=== PATIENT | male | born 1950 | race Caucasian/White ===

== ENCOUNTER → 2017-01-23 | Day surgery (SDC) | payer BC ==
[~2017-01-23] VITALS: Ht 185.4 cm; Wt 149.7 kg
[~2017-01-23] MED LIST: ARMOUR THYROID60 MG PO; ASPIRIN LO-DOSE81 MG PO; CENTRUM SILVER1 TAB PO; CPAP INH; FISH OIL 1,2001 EAC3 PO; K-TAB 10MEQ10 MEQ PO; LASIX40 MG PO; LOPRESSOR25 MG PO; LOSARTAN-HCTZ1 EAC1 PO; METAMUCIL CAPSU1 CAP PO; MOBIC15 MG PO; NEXIUM40 MG PO; OSTEO BI-FLEX1 EAC1 PO; PRESERVISION A1 EACH PO; TYLENOL EXTRA500 MG PO; TYLENOL WITH C1 EACH PO
--- NOTE | ~2017-01-23 | OR ---
PATIENT'S NAME: TANYA TERRELL [facility] AGE: 66 Y [address] ROOM: [place] [address] [place] [facility] [place]: 01/23/2017 OR/Procedure Report DISCHARGE DATE: FAMILY PHYSICIAN: Fabio Burgos MD ATTENDING PHYSICIAN: Traci Santa SURGEON: Traci Santa MD FIRE ALARM INSTALLER: DATE OF PROCEDURE: 01/23/2017 PREOPERATIVE DIAGNOSIS: Right nephrolithiasis. POSTOPERATIVE DIAGNOSES: 1. Right nephrolithiasis. 2. Bulbourethral stricture. PROCEDURE PERFORMED: Cystoscopy, urethral dilatation, right stent placement, right ESWL and temporary Landers placement. ANESTHESIA: MAC. COMPLICATIONS: None. INDICATION FOR PROCEDURE: The patient is a 66-year-old male with a 2 cm right renal pelvic stone with mild discomfort and hydronephrosis. DETAILS OF PROCEDURE: After informed consent was obtained, the patient was taken to the operating room. A MAC anesthetic was applied and he was placed in the dorsal lithotomy position. The groin area was prepped and draped in normal sterile fashion. Cystoscope was introduced into the urethra and bladder without difficulty. When the cystoscope was initially introduced, the patient was noted to have a bulbourethral stricture which was then dilated with [place] sounds. Following dilatation, I was able to enter the bladder. The right ureteral orifice was cannulated with a guidewire up into the renal pelvis. Next, a 4.9 x multi-length ureteral stent was passed over the guidewire up into the renal pelvis. Radiographic imaging showed good positioning of the stent. Since the stone was radiolucent on KUB, I then placed a guidewire back up into the renal pelvis and slid a yellow Flexi-Tip catheter up towards the level of the stone. Contrast was injected and the outline of the stone was clearly identified in the renal pelvis. Next, a Landers catheter was placed and the yellow Flexi-Tip catheter was taped to the Landers catheter. PATIENT'S NAME: TANYA TERRELL [facility] AGE: 66 Y [address] ROOM: [place] [address] LOC[place]: [facility] [place]: 01/23/2017 OR/Procedure Report DISCHARGE DATE: FAMILY PHYSICIAN: Fabio Burgos MD ATTENDING PHYSICIAN: Traci Santa The patient was then transferred to the lithotripsy table. His stone was targeted with fluoroscopy. During the procedure, I injected contrast to outline of the patient's stone. He received shocks starting at 14 kilovolts and gradually increased to 24 kilovolts. He received a total of 3000 shocks and appeared that the stone fragmented fairly well with treatment. The patient tolerated his procedure well and was transferred to the recovery room in good condition. MD FABRICIO BELTRAN/rebecca /[id number] CC: Abel Kinney MD d: 01/23/17 2324 t: 01/30/17 0902, OPERATIVE SUMMARY
== END | disposition disaster alternative care site (69) ==
LOC: GPOC 01-22 14:00 → GSDC 13:02 → GPOC 14:00
PROC: 0T768DZ Dilation of Right Ureter with Intraluminal Device, Via Natural or Artificial Opening Endoscopic (ICD-10-PCS; principal; 2017-01-23)
PROC: 0TF3XZZ Fragmentation in Right Kidney Pelvis, External Approach (ICD-10-PCS; 2017-01-23)
PROC: 0T9B80Z Drainage of Bladder with Drainage Device, Via Natural or Artificial Opening Endoscopic (ICD-10-PCS; 2017-01-23)
DX: N13.2 Hydronephrosis with renal and ureteral calculous obstruction (principal); N35.9 Urethral stricture, unspecified; M19.90 Unspecified osteoarthritis, unspecified site; K21.9 Gastro-esophageal reflux disease without esophagitis; I10 Essential (primary) hypertension; E03.9 Hypothyroidism, unspecified; E78.5 Hyperlipidemia, unspecified; Z98.890 Other specified postprocedural states; Z79.899 Other long term (current) drug therapy; Z79.82 Long term (current) use of aspirin
CPT/HCPCS: C1769; C2617; J1956; J2001; J3010; J7030

== ENCOUNTER → 2017-02-13 | Outpatient (CLI) | payer BC | END | disposition disaster alternative care site (69) | LOC: GRAD 09:25 | DX: N20.0 Calculus of kidney (principal); N40.1 Benign prostatic hyperplasia with lower urinary tract symptoms; K44.9 Diaphragmatic hernia without obstruction or gangrene; Z96.0 Presence of urogenital implants ==

== ENCOUNTER → 2017-02-13 | Day surgery (SDC) | payer BC ==
[~2017-02-13] VITALS: Ht 185.4 cm; Wt 147.7 kg
--- NOTE | ~2017-02-13 | OR ---
PATIENT'S NAME: TANYA TERRELL [facility] AGE: 66 Y [address] ROOM: [place] [address] LOCATION: [facility] [place] ADMIT DATE: 02/13/2017 OR/Procedure Report DISCHARGE DATE: FAMILY PHYSICIAN: Fabio Burgos MD ATTENDING PHYSICIAN: Traci Santa SURGEON: Traci Sanat MD WOOD HEEL FLAP TRIMMER: DATE OF PROCEDURE: 02/13/2017 PREOPERATIVE DIAGNOSIS: Right nephrolithiasis. POSTOPERATIVE DIAGNOSIS: Right nephrolithiasis. PROCEDURE PERFORMED: Right ESWL. ANESTHESIA: MAC. COMPLICATIONS: None. INDICATION FOR PROCEDURE: The patient is a 66-year-old male with a 2-cm right renal stone. The patient is status post cystoscopy with right stent placement and right ESWL. The stone was radiolucent. CT scan today reveals partial fragmentation of the stone, approximately 50%. The patient presents for further treatment. DETAILS OF PROCEDURE: After informed consent was obtained, the patient was taken to the operating room. He was placed in the supine position. A MAC anesthetic applied. Fluoroscopy was then used to locate the tip of the stent. Using that for landmarks, we then treated the renal pelvis, starting with shocks at 14 kilovolts and gradually increased to 24 kilovolts. The patient received a total of 3000 shocks. The patient tolerated the procedure well and was transferred to recovery room in good condition. MD FABRICIO BELTRAN/rebecca /[id number] CC: Abel Kinney MD d: 02/13/17 1926 t: 02/21/17 1207, OPERATIVE SUMMARY
[2017-02-13 12:58] LABS: INR - (THERAPEUTIC) 0.95 (0.92-1.07)
== END ==
LOC: GSDC 11:30
PROVIDERS: Urology
PROC: 0TF3XZZ Fragmentation in Right Kidney Pelvis, External Approach (ICD-10-PCS; principal; 2017-02-13)
DX: N20.0 Calculus of kidney (principal); I10 Essential (primary) hypertension; G47.30 Sleep apnea, unspecified; K21.9 Gastro-esophageal reflux disease without esophagitis; E03.9 Hypothyroidism, unspecified; E78.5 Hyperlipidemia, unspecified; M19.90 Unspecified osteoarthritis, unspecified site; Z98.890 Other specified postprocedural states; Z79.82 Long term (current) use of aspirin; Z79.899 Other long term (current) drug therapy
CPT/HCPCS: J1956; J2001; J7030

== ENCOUNTER → 2017-03-08 | Outpatient (CLI) | payer MEDICARE | END | disposition disaster alternative care site (69) | LOC: GRAD 07:55 | DX: Z09 Encounter for follow-up examination after completed treatment for conditions other than malignant neoplasm (principal); N20.0 Calculus of kidney; I70.90 Unspecified atherosclerosis; K44.9 Diaphragmatic hernia without obstruction or gangrene; Z96.0 Presence of urogenital implants ==